=== PATIENT | male | born 1945 | race Caucasian/White ===

== ENCOUNTER 2021-04-14 07:16 | Day surgery (SDC) | payer MEDICARE ==
[2021-04-12 10:40] LABS: Alanine Aminotransferase TNR units/L (7-56); BUN/Creatinine Ratio TNR; Blood Urea Nitrogen TNR mg/dL (9-20); Calcium TNR mg/dL (8.4-10.2); Red Blood Count TNR M/mm3 (3.65-5.03)
[2021-04-12 10:41] LABS: Albumin TNR g/dL (3.9-5); Hematocrit TNR % (35.5-45.6); Hemoglobin TNR gm/dl (11.8-15.2); Hemolysis Index TNR; Mean Corpuscular HGB Conc TNR % (32-34); Mean Corpuscular Volume TNR fl (84-94); Platelet Count TNR K/mm3 (140-440); Red Cell Distribution Width TNR % (13.2-15.2)
[2021-04-12 12:23] LABS: Hematocrit 41.6 % (35.5-45.6); Hemoglobin 14.1 gm/dl (11.8-15.2); Mean Corpuscular HGB Conc 34 % (32-34); Mean Corpuscular Volume 95 fl (84-94); Platelet Count 221 K/mm3 (140-440); Red Cell Distribution Width 13.4 % (13.2-15.2)
[2021-04-12 13:04] LABS: Alanine Aminotransferase 24 units/L (7-56); Albumin 4.2 g/dL (3.9-5); BUN/Creatinine Ratio 16; Blood Urea Nitrogen 16 mg/dL (9-20); Calcium 9.3 mg/dL (8.4-10.2); Hemolysis Index 16
--- NOTE | 2021-04-12 13:27 | Anesthesia Consultation ---
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
[~2021-04-14 07:16] MED LIST: LACTATED RINGERS 1,000 ML IV SCH
--- NOTE | 2021-04-14 08:21 | Anesthesia Day of Surgery ---
Anesthesia Day of Surgery - Day of Surgery Patient Examined: Yes Patient H&P Reviewed: Yes Patient is NPO: Yes
[2021-04-14] MEDS ORDERED: ceFAZolin/Water 2 GM/20 ML 2 GM/20 ML SYRINGE IV ONE (08:31)
[2021-04-14] MEDS ORDERED: propofoL 200 MG/20 ML VIAL IV ONE (09:14)
[2021-04-14] MEDS ORDERED: fentaNYL 100 MCG/2 ML INJ ONE (09:14)
[2021-04-14] MEDS ORDERED: LIDOCAINE MPF (2%) 20 MG/1 ML VIAL 5 ML ONE (09:15)
[2021-04-14] MEDS ORDERED: ePHEDrine SULFATE 50 MG/1 ML INJ ONE (09:48)
[2021-04-14] MEDS ORDERED: SODIUM CHLORIDE 0.9% IRR 1,500 ML BOTTLE IR ONE (09:56)
[2021-04-14] MEDS ORDERED: dexAMETHasone 20 MG/5 ML VIAL ONE (09:56)
[2021-04-14] MEDS ORDERED: ONDANSETRON 4 MG/2 ML INJ IV PRN (10:00)
[2021-04-14] MEDS ORDERED: HYDROmorphone 1 MG/1 ML INJ IV PRN (10:00)
[2021-04-14] MEDS ORDERED: KETOROLAC 30 MG/1 ML INJ ONE (10:10)
[2021-04-14] MEDS ORDERED: WATER FOR IRRIG STERILE 1,500 ML BOTTLE IR ONE (10:17)
[2021-04-14] MEDS: HYDROmorphone 1 MG/1 ML INJ IV PRN ×4 (10:40→11:10)
--- NOTE | 2021-04-14 11:10 | Operative Report ---
DATE OF SURGERY: 04/14/2021 PREOPERATIVE DIAGNOSES: 1. Tight phimosis. 2. Pain with erections and difficulty urination. 3. Urethral meatal obstruction. POSTOPERATIVE DIAGNOSES: 1. Tight phimosis. 2. Pain with erections and difficulty urination. 3. Urethral meatal obstruction. OPERATIVE PROCEDURES: 1. Correction of urethral meatal stricture with division and suturing. 2. Dilation of the meatal stricture. 3. Revision circumcision. ATTENDING: Daryl Carney MD ASSISTANTS: None. ANESTHESIA: General. SPECIMENS: None. DRAINS: An 18-Serbian Barker catheter. COMPLICATIONS: None. INDICATIONS FOR PROCEDURE: The patient is a 75-year-old man with a history of a tight phimosis. It appears that he had a circumcision in the past that had scarred down. He could not retract his foreskin. This issue caused pain with erections and difficulty urination. The excess penile skin had also adhered to the urethral meatus, which caused difficulty with urination. The patient was brought to the operating room for correction. DESCRIPTION OF PROCEDURE IN DETAIL: After induction of suitable anesthesia and proper positioning and preparation in the supine position, the patient's foreskin was grasped with a hemostat and blunt dissection was used to take down the penile adhesions between the penile skin and the glans penis. This was able to free up the glans penis mostly on the dorsal and lateral aspects of the glans. The ventral area was firmly adhered between the penile skin and the urethral meatus. The urethral meatus was then dilated with urethral dilators to 26-Serbian. The ventral tissue was then crushed and divided sharply. This created a hypospadiac meatus, which would help the patient urinate better. The edges were then reapproximated with chromic suture in a V-shaped configuration. This was hemostatic. A Barker catheter was placed. The excess skin on the dorsal aspect of the penis was then excised sharply. The remaining skin was then reapproximated in a normal Z plasty like fashion between the penile skin and the glans penis. There was a gap at the dorsum at the 12 o'clock position and the skin was then closed to itself to close that defect. The glans was then freely visible and had a nice cosmetic appearance. It should no longer be phimotic. Dressings were applied. The patient was then awakened from anesthesia and transferred to the recovery room in stable condition. He tolerated the procedure well. He will return in approximately 5 to 7 days for catheter removal. TID: [id number] RECEIPT: [id number] DONNA/SIDNEY
[2021-04-14] MEDS ORDERED: oxyCODONE /ACETAMINOPHEN 5-325MG TAB PO PRN (11:30)
[2021-04-14 11:48] VITALS: BP 135/81
[2021-04-14] MEDS ORDERED: ceFAZolin/Water 2 GM/20 ML 2 GM/20 ML SYRINGE IV NR (13:15)
--- NOTE | 2021-04-14 16:02 | Post Anesthesia Evaluation ---
- Post Anesthesia Evaluation Patient Participated: Yes Airway Patent: Yes Stable Respiratory Function: Yes Nausea/Vomiting: No Temp > 96.8F: Yes Pain Manageable: Yes Adequeate Hydration: Yes Anesthesia Complications: No Block Receding Appropriately: Not Applicable Patient on Ventilator: No
== END 2021-04-14 12:25 | disposition home or self-care (01) ==
LOC: OR 07:16
PROVIDERS: ATTEND Urology
PROC: 0VTTXZZ Resection of Prepuce, External Approach (ICD-10-PCS; principal; 2021-04-14)
DX: N47.1 Phimosis (principal); G47.30 Sleep apnea, unspecified; I10 Essential (primary) hypertension; K21.9 Gastro-esophageal reflux disease without esophagitis; I25.10 Atherosclerotic heart disease of native coronary artery without angina pectoris; F41.9 Anxiety disorder, unspecified; E78.00 Pure hypercholesterolemia, unspecified; N40.0 Benign prostatic hyperplasia without lower urinary tract symptoms; Z79.899 Other long term (current) drug therapy; Z98.890 Other specified postprocedural states; Z20.822 Contact with and (suspected) exposure to COVID-19
CPT/HCPCS: 36415; 54163; 80053; 85027; J0690; J1100; J1170; J1885; J2405; J2704; J3010; J7120; U0003